=== PATIENT | male | born 1985 | race Caucasian/White ===

== ENCOUNTER 2019-07-12 12:38 | Emergency (ER) | payer BC, SELFPAY | END 2019-07-12 13:35 | disposition home or self-care (01) | LOC: ERS 12:38 | DX: S63.502A Unspecified sprain of left wrist, initial encounter (principal); X50.0XXA Overexertion from strenuous movement or load, initial encounter | CPT/HCPCS: 99283 ==

== ENCOUNTER 2020-03-14 07:48 | Outpatient (CLI) | payer BC, OTHER ==
[2020-03-14 14:31] LABS: #Lymphocytes 1.6 thou/uL (1.20-3.40); #Monocytes 0.3 thou/uL (0.11-0.59); %Basophils 0.8 % (0.0-1.0); %Eosinophils 0.6 % (0.0-10.0); %Lymphocytes 26.7 % (21.0-51.0); %Monocytes 5.5 % (0.0-10.0); %Neutrophils 66.3 % (42.0-75.0); Hemoglobin 16.8 g/dL (14.0-18.0); Mean Corpuscular HGB CONC 34.8 g/dL (32.0-36.0); Mean Corpuscular Volume 89.1 fL (78.0-98.0); Mean Platelet Volume 10.6 fL (7.4-10.4); Platelet Count 120 thou/uL (130-400); RBC Distribution Width 11.3 % (11.5-14.5)
[2020-03-14 14:40] LABS: Anion Gap 13 mmol/L (10-20); BUN (Urea Nitrogen) 12 mg/dL (8.9-20.6); Calc. Creatinine Clearance 0 mL/min (70-130); Calcium 9.2 mg/dL (7.8-10.44); Carbon Dioxide 26 mmol/L (22-29); Chloride 105 mmol/L (98-107); Estimated GFR-MDRD Greater than 90; Glucose 100 mg/dL (70-105); Potassium 4.6 mmol/L (3.5-5.1); Sodium 139 mmol/L (136-145)
[2020-03-15 11:06] LABS: SARS-CoV-2 MS2 Positive; SARS-CoV-2 N Gene Negative; SARS-CoV-2 S Gene Negative; SARS-CoV-2 by NAA Not Detected (NotDetected); SARS-CoV-2 orf1ab Negative
== END 2020-03-14 07:49 | disposition home or self-care (01) ==
LOC: LABBT 07:48
PROVIDERS: ATTEND Specialist
DX: Z01.812 Encounter for preprocedural laboratory examination (principal); K40.90 Unilateral inguinal hernia, without obstruction or gangrene, not specified as recurrent; Z20.828 Contact with and (suspected) exposure to other viral communicable diseases
CPT/HCPCS: 80048; 85025; 87635; U0003

== ENCOUNTER 2020-03-17 07:03 | Day surgery (SDC) | payer BC ==
[2020-03-16 09:32] VITALS: BMI 27.0
[2020-03-17] MEDS ORDERED: Levofloxacin 500 mg/D5W 100 ml Premix Bag ONE (07:55)
[2020-03-17] MEDS ORDERED: Ketorolac Tromethamine 30 MG/ML VIAL ONE (07:55)
[2020-03-17] MEDS ORDERED: Acetaminophen 500 MG TAB ONE (07:55)
[2020-03-17] MEDS ORDERED: Bupivacaine/Epinephrine 0.25% 30 ML VIAL ONE (08:41)
[2020-03-17] MEDS ORDERED: Fentanyl 100 MCG/2 ML VIAL ONE (08:45)
[2020-03-17] MEDS ORDERED: Rocuronium Bromide 10 MG/ML (10ML VIAL) ONE (10:27)
[2020-03-17] MEDS ORDERED: PROPOFOL 200 MG/20 ML VIAL ONE (10:27)
[2020-03-17] MEDS ORDERED: Ondansetron PF 4 MG/2 ML Vial ONE (10:27)
[2020-03-17] MEDS ORDERED: Dexamethasone 20 MG/5 ML VIAL ONE (10:27)
[2020-03-17] MEDS ORDERED: Glycopyrrolate 0.2 MG/ML 5 ML SYRINGE ONE (10:27)
[2020-03-17] MEDS ORDERED: Lidocaine 1% PF 5 ML VIAL ONE (10:27)
--- NOTE | 2020-03-17 12:07 | OP ---
DATE OF PROCEDURE: 03/17/2020 PREOPERATIVE DIAGNOSIS: Left inguinal hernia. POSTOPERATIVE DIAGNOSIS: Left inguinal hernia, indirect. PROCEDURES PERFORMED: Left inguinal hernia repair with large 3DMax mesh patch using the da Valeria robot. ANESTHESIA: General endotracheal. INDICATIONS: The patient is a 34-year-old white male. He has had a prior right inguinal hernia repair about 15 years ago. He presents this time with an obvious left inguinal hernia and is taken to the operating room at this time for repair. DESCRIPTION OF OPERATION: Informed consent was obtained. The patient was taken to the operating room, where general endotracheal anesthesia was obtained with the patient in supine position. Abdomen was prepped with ChloraPrep and Santos catheter was placed. Abdomen was draped in usual sterile fashion. Local anesthetic was infiltrated and an 11 mm supraumbilical incision was created, through which a Veress needle was passed into the peritoneal cavity and pneumoperitoneum was established using carbon dioxide up to pressure of 15 mmHg. An 11 mm balloon-tipped trocar port was passed through this incision and camera was passed through this port. Under direct vision, two additional 8 mm robotic ports were placed at the umbilical level on either side of midline. The robot was docked to the 3 ports and the robotic camera, and the operation was continued from the robotic console. Inspection revealed the mesh plug from his right inguinal hernia repair that was in place and no evidence of recurrent hernia. There were some adhesions to retroperitoneal structures overlying the vessels of the right pelvis. There was no bowel adherent in this area. Attention was turned to the left groin. There was an obvious fairly large left inguinal hernia that was indirect (lateral to the epigastric vessels). A transverse peritoneal incision was created several centimeters above the hernia defect. Dissection was carried inferiorly in the preperitoneal plane. Wide dissection was carried out to clear the iliopubic tract laterally and the pubic tubercle medially. The hernia sac was carefully dissected off the associated cord structures using sharp dissection and electrocautery. There was no injury to the associated cord structures. The peritoneum was then widely dissected posteriorly to allow an ample plane for mesh placement. A large 3DMax mesh patch was obtained for the left side and placed in the preperitoneal space. It was secured to the pubic tubercle and the anterior abdominal wall with 2 interrupted sutures of 2-0 Vicryl. The peritoneum was then closed with a running suture of 3-0 Stratafix. The peritoneum was completely closed in this fashion. The fascia at the 11 mm port site was closed with 0 Vicryl suture using a GraNee needle. All ports and instruments were removed under direct vision. Pneumoperitoneum was carefully evacuated. Additional local anesthetic was infiltrated into each port site. Skin edges approximated with 4-0 Monocryl subcuticular suture. Dermabond was placed externally. There were no complications. Blood loss was negligible. The patient tolerated the procedure well and was taken to recovery room in stable condition. Job ID: [id number]
== END 2020-03-17 12:53 | disposition home or self-care (01) ==
LOC: SDC 07:03
PROVIDERS: ATTEND Specialist
PROC: 0YU64JZ Supplement Left Inguinal Region with Synthetic Substitute, Percutaneous Endoscopic Approach (ICD-10-PCS; principal; 2020-03-17)
DX: K40.90 Unilateral inguinal hernia, without obstruction or gangrene, not specified as recurrent (principal); L72.3 Sebaceous cyst; Z88.0 Allergy status to penicillin; Z91.018 Allergy to other foods; Z91.038 Other insect allergy status
CPT/HCPCS: C1781; J1100; J1885; J1956; J2405; J2704; J3010